=== PATIENT | male | born 1995 | race Caucasian/White ===

== ENCOUNTER 2023-06-27 09:58 | Emergency (ER) | payer BC ==
[~2023-06-27] VITALS: Ht 170.2 cm; Wt 69.4 kg
[2023-06-27 10:22] VITALS: BP 140/81; TEMP 98; O2SAT 100
[2023-06-27] MEDS ORDERED: SULF1TAB48 PO (10:37)
[2023-06-27] MEDS ORDERED: CEPH500C2 PO (10:37)
== END 2023-06-27 10:47 | disposition home or self-care (01) ==
LOC: ER 09:58
DX: L03.211 Cellulitis of face (principal); L03.311 Cellulitis of abdominal wall; Z79.899 Other long term (current) drug therapy